=== PATIENT | male | born 1965 | race Caucasian/White ===

== ENCOUNTER → 2019-08-27 17:42 | Outpatient (CLI) | payer BC, SELFPAY ==
--- NOTE | 2019-08-27 17:53 | XR_ITS ---
PROCEDURE: XR CHEST 2V CLINICAL HISTORY: COUGH COMPARISON: No exams were available for comparison FINDINGS: The cardiomediastinal silhouette and pulmonary vascularity are within normal limits. The lungs are clear without infiltrates, suspicious nodules, or pleural effusions. A small metallic density is noted overlying the upper chest medially just inferior to the head of the clavicle on the left. Probably within the soft tissues anteriorly. No acute bony anomaly. IMPRESSION: No acute findings. Dictated by: John Dorman MD 08/27/2019 18:14 Electronically signed by John Dorman MD in [place] 08/27/2019 18:14
== END ==
PROVIDERS: PCP Family Medicine; Visit Provider Family Medicine
DX: R05 Cough (principal)
CPT/HCPCS: 71046

== ENCOUNTER → 2019-11-30 08:32 | Outpatient (CLI) | payer BC, SELFPAY ==
[2019-11-30 11:04] LABS: Coronavirus 19 IgG Antibody Negative (Negative); Coronavirus 19 IgM Antibody Negative (Negative)
== END ==
PROVIDERS: Visit Provider Internal Medicine Gastroenterology
DX: Z01.818 Encounter for other preprocedural examination (principal); Z12.11 Encounter for screening for malignant neoplasm of colon
CPT/HCPCS: 36415; 86328

== ENCOUNTER 2019-12-03 07:55 | Day surgery (SDC) | payer BC, SELFPAY ==
--- NOTE | 2019-11-29 11:24 | SUR.PREOP ---
11/29/2019 @ 1124--PHONE CALL MADE TO PATIENT. PATIENT UNDERSTANDS THAT LAB WORK AND COVID TESTING NEEDS TO BE COMPLETED @ 0830 ON 11/30/2019. PATIENT UNDERSTANDS IF LAB WORK AND COVID-19 TESTS ARE NOT COMPLETED BY 12PM ON THAT DATE, THE SURGERY SCHEDULED WILL BE CANCELLED AND RESCHEDULED FOR ANOTHER TIME.
[2019-12-03] VITALS (7 sets, daily range): BP systolic 92–131; BP diastolic 57–79; PULSE 63–76; RESP 16–18; TEMP 36.4–36.7; O2SAT 97–99; BMI 25.0
--- NOTE | 2019-12-03 08:54 | P.PCN_ITS ---
[facility] Procedure Note Procedure Note:: Colonoscopy Procedure Report: Colonoscopy with cold snare polypectomy Endoscopist: Maurice Hylton II, MD Referring physician: Phil Zepeda MD Date of Procedure: December 03, 2019 Equipment: Olympus 180 variable stiffness pediatric colonoscope Sedation: MAC sedation Indication: Mr. Mansfield is a 54-year-old gentleman who is here for initial screening colonoscopy. He reports no abdominal pain, weight loss, change in his bowel habits or rectal bleeding. He reports no family history of colon cancer. Procedure: Prior to the procedure, a history and physical exam was performed, and patient's medications and allergies were reviewed. The risks, benefits and alternatives of the sedation and procedure were discussed with the patient. All questions were answered and informed consent was obtained. The patient was brought to the procedure room. Patient identification and proposed procedure were verified by the physician and the nurse. The patient was placed in a left lateral decubitus position and the scope was passed under direct vision. Throughout the procedure, the patient's blood pressure, pulse, and oxygen saturations were monitored continuously. The colonoscopy was accomplished without difficulty. The patient tolerated the procedure well. Findings: On digital rectal examination there was normal rectal tone. There were no external hemorrhoids. The colonoscope was introduced through the anal canal to the rectum and advanced to the cecum. The ileocecal valve and appendiceal orifice were identified. The scope was advanced a short distance into the ileum which appeared grossly normal. The scope was then withdrawn into the colon. The cecum was normal. There was a 6 mm and 3 mm polyps x2 in the ascending colon and a 3 mm polyp in the descending colon. All 3 of these polyps were removed via cold snare polypectomy. The remainder of the colonic mucosa was normal. Upon retroflexion within the rectum there were grade 1-2 internal hemorrhoids.The preparation was excellent throughout with [place] Preparation Score of 9. The cecal time was 11 minutes. Impression: 1. Diminutive colonic polyps x3 2. Grade 1-2 internal hemorrhoids Plan: I will follow up the polyp pathology and recommend repeat colonoscopy again in 5 years based upon the polyp histology. I would encourage fiber supplementation on a long-term daily maintenance basis.
--- NOTE | 2019-12-03 09:09 | P.PN_ITS ---
[facility] Anesthesia Checklist - Patient Identification Patient Identification: Arm Band, Verbal (Name & ) - Structural Data Admitted From: Home Planned Operative Procedure/s: Colonoscopy Consent for Planned Operative Procedure(s) Verified: Yes Verified Documents: Surgical Consent, History and Physical - NPO Status Verified Time NPO: 00:00 - Chart Verification Results Verified: None - Additional verifications Anesthesia Reactions: No - Airway Assessment C-Spine Mobility Assessed: Yes TMJ Mobility Assessed: Yes Dentition: Good Dentition - Neurological Assessment Level of Consciousness: Awake, Alert, Appropriate, Follows Commands Hx Seizures: No Numbness or tingling in extremities: No - Anesthesia Plan Anesthesia Risk discussed: Yes Anesthesia Plan: Verified ASA Class: II Anesthesia Type: MAC [facility] History I have reviewed the patient's past medical history: Yes Medical History: Reports:: Gastroesophageal Reflux Disease(GERD), Hypertension Denies:: Cancer, Diabetes Mellitus Type 1, Diabetes Mellitus Type 2, Internal Pacemaker, MRSA, Seizures *Have you ever received a pneumonia vaccine?: No *Have you received a flu vaccine this season?: Yes Anesthesia experience/problems:: None Other Surgeries: No: Pacemaker Amputation: No Fractures: Yes (L arm) Comment: hand sx - *Social History Smoking Status: Never smoker Alcohol Intake: current Alcohol Intake Frequency:: a few times a month Substance Use Type: denies use *Occupational Status:: employed Housing: house Household Members: spouse, family *Travel in the last 8 weeks: None Family Hx:: Unable to obtain
== END 2019-12-03 10:23 | disposition home or self-care (01) ==
LOC: OUTP 07:57
PROVIDERS: PCP Family Medicine; Visit Provider Internal Medicine Gastroenterology
PROC: 0DJD8ZZ Inspection of Lower Intestinal Tract, Via Natural or Artificial Opening Endoscopic (ICD-10-PCS; CPT 45378; principal; 2019-12-03 09:00)
DX: Z12.11 Encounter for screening for malignant neoplasm of colon (principal); K63.5 Polyp of colon; K64.0 First degree hemorrhoids
CPT/HCPCS: 45385

== ENCOUNTER → 2019-12-10 14:57 | Outpatient (CLI) | payer BC, SELFPAY ==
--- NOTE | 2019-12-10 15:03 | CT_ITS ---
PROCEDURE: CT HEART W CALCIUM SCORE CLINICAL HISTORY: FAMILY H/O CORONARY ARTERY DISEASE COMPARISON: No exams were available for comparison TECHNIQUE: Axial images obtained with sagittal and coronal reformats. All CT scans at the facility use one or more dose reduction, viz: automated exposure control, ma/kV adjustment per patient size (including targeted exams where dose is matched to indication, i.e. head), or iterative reconstruction technique. FINDINGS: Coronary artery calcium score is 139 indicating moderate plaque burden with high cardiovascular disease risk. Incidental note is made of a small hiatal hernia IMPRESSION: Moderate plaque burden with high cardiovascular disease risk Dictated by: John Dorman MD 12/10/2019 19:30 Electronically signed by John Dorman MD in [place] 12/10/2019 19:30
== END ==
PROVIDERS: PCP Family Medicine; Visit Provider Family Medicine
DX: Z13.6 Encounter for screening for cardiovascular disorders (principal)
CPT/HCPCS: 75571

== ENCOUNTER 2021-03-28 13:16 | Emergency (ER) | payer BC, SELFPAY ==
[2021-03-28 14:10] VITALS: BP 142/93; PULSE 98; RESP 18; TEMP 36.8; O2SAT 98; BMI 25.0
--- NOTE | 2021-03-28 14:25 | HMH.EDUTC ---
[facility] Disposition Clinical Impression: Laceration of left knee without complication Qualifiers: Encounter type: initial encounter Qualified Code(s): S81.012A - Laceration without foreign body, left knee, initial encounter Disposition: Home, Self-Care Condition on Discharge: Good Instructions: DI for Laceration Repair Additional Instructions: Take antibiotics as prescribed until gone Return to [facility] or f/u with Dr Zepeda if signs of infection Remove sutures 7-10 days Keep clean and dry Prescriptions: cephALEXin [Cephalexin 500mg Tab] 500 mg PO Q6H 10 Days #40 tab Transmission Status: Pending to [facility] Referrals: Phil Zepeda MD [Primary Care Provider] - Time of Disposition: 15:10 Medical Decision Making - Aris Inquiry Pt receiving controlled substance: No Vital Signs: 03/28/21 14:10 Temperature 98.2 F Temperature Source Oral Pulse Rate [Left Brachial] 98 H Respiratory Rate 18 Blood Pressure [Left Arm] 142/93 H Blood Pressure Mean [Left Arm] 109 Blood Pressure Source [Left Arm] Automatic Cuff Blood Pressure Position [Left Arm] Sitting 02 Sat by Pulse Oximetry 98 Oxygen Delivery Method Room Air Orders (Tests/Meds): ED MEDICATIONS Discontinued Medications Generic Name Dose Route Start Last Admin Trade Name Freq PRN Reason Stop Dose Admin Tetanus/Reduced Diphtheria/Acell Pertussis 0.5 ml 03/28/21 14:37 03/28/21 14:40 Tet/Diphth/Pert-Adult 0.5ml Syringe IM 03/28/21 14:38 0.5 ml .ONCE ONE Administration [facility] HPI - General Stated complaint: chainsaw laceration lft knee Time Seen by Provider: 03/28/21 14:36 - History of Present Illness Provider Complaint: Laceration inner left knee with chainsaw 1.5 hours [employer]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 Needs tetanus shot. Onset (ago): hour(s) (1.5) Location: left, lower extremity Relieving factors: none Exacerbating factors: none Associated symptoms: denies other symptoms Treatments prior to arrival: none - Related Data Home Medications Medication Instructions Recorded Confirmed Famotidine [Pepcid] 20 mg PO BID 09/03/19 12/03/19 Losartan Potassium 50 mg PO DAILY 09/03/19 12/03/19 Previous Rx's Medication Instructions Recorded cephALEXin [Cephalexin 500mg Tab] 500 mg PO Q6H 10 Days #40 tab 09/25/21 Allergies Allergy/AdvReac Type Severity Reaction Status Date / Time No Known Allergies Allergy Verified 12/03/19 08:19 [facility] History - Hepatitis A Screen Attestation statement:: This patient has been screened for Hepatitis A risk factors. I have reviewed the patient's past medical history: Yes Medical History: Reports:: Gastroesophageal Reflux Disease(GERD), Hypertension Denies:: Cancer, Diabetes Mellitus Type 1, Diabetes Mellitus Type 2, Internal Pacemaker, MRSA, Seizures Other Surgeries: No: Pacemaker Amputation: No Fractures: Yes (L arm) Comment: hand sx - Social History Smoking Status: Never smoker Alcohol Intake: current Alcohol Intake Frequency:: a few times a month Substance Use Type: denies use Occupational Status: employed Housing: house Household Members: spouse, family Family Hx:: Unable to obtain ROS Obtained: Yes All systems reviewed & no additional complaints - Integumentary/Breasts Skin/Breast: Reports as per HPI (laceration left knee) Physical Exam - General General appearance: alert, in no apparent distress - Head Head exam: normocephalic - Eye Eye exam: Present: PERRL - Respiratory Respiratory exam: Present: normal lung sounds bilaterally - Cardiovascular Cardiovascular exam: Present: regular rate, normal rhythm - Expanded Lower Extremity Exam Left Knee exam: Present: laceration (4 cm laceration left inner knee) - Neurological Exam Neurological exam: Present: alert, oriented X3 - Psychiatric Psychiatric exam: Present: normal affect, normal mood - Skin Skin exam: Present: warm, dry, intact Procedures - Laceration Laceration 1 Site: lower extremi
[2021-03-28 15:13] VITALS: BP 142/93; PULSE 98; RESP 18; TEMP 36.8; O2SAT 98
== END 2021-03-28 15:21 | disposition home or self-care (01) ==
PROVIDERS: Emergency Provider Physician Assistant; PCP Family Medicine
DX: S81.012A Laceration without foreign body, left knee, initial encounter (principal); W29.3XXA Contact with powered garden and outdoor hand tools and machinery, initial encounter; Y92.89 Other specified places as the place of occurrence of the external cause; K21.9 Gastro-esophageal reflux disease without esophagitis; Z23 Encounter for immunization; I10 Essential (primary) hypertension
CPT/HCPCS: 12002; 90471; 90715; 99202; G0463

== ENCOUNTER → 2022-04-06 14:03 | Outpatient (POV) | payer BC, SELFPAY | PROVIDERS: Visit Provider Dermatology | DX: Z00.00 Encounter for general adult medical examination without abnormal findings (principal) ==